=== PATIENT | male | born 1970 | race Caucasian/White ===

== ENCOUNTER 2020-09-21 00:32 | Inpatient (IN) ==
[2020-09-21] MEDS ORDERED: ONDANSETRON 4 MG/2 ML VIAL IV STA ×2 (00:54→07:24)
[2020-09-21] MEDS ORDERED: SODIUM CHLORIDE 0.9% 1,000 ML IV STA (00:54)
[2020-09-21] MEDS ORDERED: HYDROmorphone 2 MG/1 ML VIAL IV STA (00:54)
[2020-09-21] MEDS ORDERED: PANTOPRAZOLE 40 MG VIAL IV STA (00:54)
[2020-09-21] MEDS ORDERED: ALUM/MAG/SIMETH/LIDO VISC 1:1 30 ML BOTTLE PO STA (00:54)
[2020-09-21 01:10] LABS: Alanine Aminotransferase 26 U/L (16-61); Albumin 3.9 G/DL (3.4-5.0); Alkaline Phosphatase 62 U/L (45-117); Aspartate Amino Transferase 18 U/L (0-37); Blood Urea Nitrogen 12 MG/DL (7-18); Calcium 9.2 MG/DL (8.5-10.1); Carbon Dioxide 27 MMOL/L (21-32); Estimated Glom Filtration Rate 76 ML/MIN; Glucose 174 MG/DL (74-106); Potassium 3.9 MMOL/L (3.5-5.1); Sodium 136 MMOL/L (136-145); Total Protein 7.3 G/DL (6.4-8.2)
[2020-09-21 01:23] LABS: Basophils % 0.4 % (0.0-0.8); Eosinophils % 0.1 % (0.00-10.9); Hematocrit 50.2 VOL% (42.0-52.0); Hemoglobin 17.1 GM/DL (14.0-18.0); Immature Granulocytes % 0.4 %; Immature Granulocytes Absolute 0.03 #; Lymphocytes # 0.9 10*3/uL (1.4-4.0); Lymphocytes % 10.1 % (21.2-54.2); Mean Corpuscular HGB Conc 34.1 GM/DL (32-36); Mean Corpuscular Volume 85.2 FL (87-102); Mean Platelet Volume 9.6 FL (9.6-12.0); Monocytes % 3.6 % (1.7-12.7); Neutrophils % 85.4 % (38.7-73.9); Platelet Count 311 T/CUMM (130-400); Red Blood Count 5.89 MC/CUMM (3.8-5.5); Red Cell Distribution Width 13.6 % (9.3-17.3); White Blood Count 8.5 T/CUMM (4-12)
[2020-09-21 02:42] LABS: Band Neutrophils 2 % (0-10); Lymphocytes 17 % (20-55); Platelet Estimate Increased; Segmented Neutrophils 79 % (50-85); Total Cells Counted 100
[2020-09-21 02:43] LABS: Hypochromasia Slight; Microcytosis 1+; Stomatocytes Few
[2020-09-21 02:45] LABS: Tear Drop Cells Slight
[2020-09-21 03:17] LABS: Bacteria,Urine Occasional /HPF (Few); Bilirubin,Urine Negative (Negative); Blood, Urine Negative (Negative); Glucose,Urine (UA) Negative (Negative); Ketones,Urine Negative (Negative); Mucus,Urine Many /LPF (Occasional); Nitrite,Urine Positive (Negative); Protein,Urine Negative; RBC,Urine 2 /HPF (0-4); Squamous Epithelial Cell,Urine Occasional /HPF (0-10); Urine Appearance CLEAR (Clear); Urine Color Amber (Yellow); Urine Specific Gravity > 1.060 (1.001-1.035)
[2020-09-21] MEDS ORDERED: PIPERACILLIN/TAZOBACTAM 3,375 MG in SODIUM CHLORIDE 0.9% 100 ML IV STA (03:19)
[2020-09-21] MEDS ORDERED: HYDROmorphone 2 MG/1 ML VIAL IV ONE (03:30)
[2020-09-21] MEDS ORDERED: LIDOCAINE 2% 5 ML VIAL ONE (04:33)
[2020-09-21] MEDS ORDERED: ROCURONIUM 50 MG/5 ML VIAL IV ONE (04:33)
[2020-09-21] MEDS ORDERED: fentaNYL 100 MCG/2 ML VIAL ONE (04:33)
[2020-09-21] MEDS ORDERED: SUCCINYLCHOLINE 200 MG/10 ML VIAL ONE (04:33)
[2020-09-21] MEDS ORDERED: propofoL 200 MG/20 ML VIAL IV ONE ×2 (04:33→05:31)
[2020-09-21] MEDS ORDERED: MIDAZOLAM 2 MG/2 ML VIAL ONE (04:34)
[2020-09-21] MEDS ORDERED: SEVOFLURANE 1 UNIT/15 MINUTE INH ONE (05:28)
[2020-09-21] MEDS ORDERED: DEXAMETHASONE 4 MG/1 ML VIAL ONE (05:28)
[2020-09-21] MEDS ORDERED: LACTATED RINGERS 1,000 ML IV ONE (05:28)
[2020-09-21] MEDS ORDERED: ONDANSETRON 4 MG/2 ML VIAL ONE ×2 (05:28→07:20)
[2020-09-21] MEDS ORDERED: SUGAMMADEX 200 MG/2 ML VIAL IV ONE (05:29)
[2020-09-21] MEDS: HYDROmorphone 2 MG/1 ML VIAL IV PRN ×2 (07:25→07:35)
[2020-09-21] MEDS ORDERED: PROMETHAZINE 25 MG/1 ML VIAL IM PRN (08:23)
[2020-09-21] MEDS: KETOROLAC 15 MG/1 ML VIAL IV SCH ×3 (09:39→20:41)
[2020-09-21] MEDS: LACTATED RINGERS 1,000 ML IV SCH ×3 (09:41→22:12)
[2020-09-21] MEDS: metroNIDAZOLE INJ 500 MG/100 ML PREMIX IV SCH ×2 (11:21→18:03)
[2020-09-22] MEDS: KETOROLAC 15 MG/1 ML VIAL IV SCH ×4 (02:32→20:25)
[2020-09-22] MEDS: LACTATED RINGERS 1,000 ML IV SCH ×4 (02:50→21:53)
[2020-09-22 05:28] LABS: Basophils % 0.3 % (0.0-0.8); Eosinophils % 0.1 % (0.00-10.9); Hematocrit 42.8 VOL% (42.0-52.0); Immature Granulocytes % 0.9 %; Immature Granulocytes Absolute 0.08 #; Lymphocytes # 0.6 10*3/uL (1.4-4.0); Mean Corpuscular HGB Conc 33.2 GM/DL (32-36); Mean Platelet Volume 9.6 FL (9.6-12.0); Monocytes % 4.4 % (1.7-12.7); Neutrophils % 87.3 % (38.7-73.9); Red Blood Count 4.92 MC/CUMM (3.8-5.5); Red Cell Distribution Width 14.6 % (9.3-17.3); White Blood Count 8.9 T/CUMM (4-12)
[2020-09-22 05:42] LABS: Hemoglobin 14.2 GM/DL (14.0-18.0)
[2020-09-22] MEDS: PANTOPRAZOLE 40 MG VIAL IV SCH (05:42)
[2020-09-22 05:43] LABS: Platelet Count 192 T/CUMM (130-400)
[2020-09-22 05:52] LABS: Calcium 8.3 MG/DL (8.5-10.1); Osmolality,Calculated 277.7 MOS/KG (273-304); Potassium 4.2 MMOL/L (3.5-5.1)
[2020-09-22 06:05] LABS: Band Neutrophils 9 % (0-10); Eosinophils 1 % (0-10); Lymphocytes 12 % (20-55); Platelet Estimate Adequate; Segmented Neutrophils 76 % (50-85); Total Cells Counted 100
[2020-09-22] MEDS: ENOXAPARIN 40 MG/0.4 ML SYRINGE SUBCUT SCH (09:00)
[2020-09-22] MEDS: ONDANSETRON 4 MG/2 ML VIAL IV PRN (14:20)
[2020-09-23] MEDS: KETOROLAC 15 MG/1 ML VIAL IV SCH ×4 (03:34→21:31)
[2020-09-23] MEDS: LACTATED RINGERS 1,000 ML IV SCH (05:01)
[2020-09-23 05:22] LABS: Basophils % 0.3 % (0.0-0.8); Eosinophils % 0.3 % (0.00-10.9); Hematocrit 40.3 VOL% (42.0-52.0); Hemoglobin 13.2 GM/DL (14.0-18.0); Immature Granulocytes % 1.6 %; Immature Granulocytes Absolute 0.16 #; Lymphocytes # 0.7 10*3/uL (1.4-4.0); Lymphocytes % 6.5 % (21.2-54.2); Mean Corpuscular HGB Conc 32.8 GM/DL (32-36); Mean Corpuscular Volume 88.8 FL (87-102); Mean Platelet Volume 9.6 FL (9.6-12.0); Monocytes % 4.4 % (1.7-12.7); Neutrophils % 86.9 % (38.7-73.9); Platelet Count 200 T/CUMM (130-400); Red Blood Count 4.54 MC/CUMM (3.8-5.5); Red Cell Distribution Width 14.4 % (9.3-17.3); White Blood Count 10.3 T/CUMM (4-12)
[2020-09-23] MEDS: PANTOPRAZOLE 40 MG VIAL IV SCH (05:43)
[2020-09-23 05:49] LABS: Band Neutrophils 1 % (0-10); Lymphocytes 10 % (20-55); Platelet Estimate Adequate; Segmented Neutrophils 84 % (50-85); Total Cells Counted 100
[2020-09-23 05:58] LABS: Osmolality,Calculated 277.7 MOS/KG (273-304); Potassium 4.4 MMOL/L (3.5-5.1)
[2020-09-23] MEDS: ENOXAPARIN 40 MG/0.4 ML SYRINGE SUBCUT SCH (08:52)
[2020-09-23] MEDS: DEXT 5% NACL 0.45% KCL 40 MEQ 40 MEQ/1,000 ML BAG IV SCH ×2 (09:55→17:46)
[2020-09-23] MEDS: HYDROmorphone 2 MG/1 ML VIAL IV PRN (16:16)
[2020-09-24] MEDS: PANTOPRAZOLE 40 MG VIAL IV SCH ×2 (03:31→05:54)
[2020-09-24] MEDS: KETOROLAC 15 MG/1 ML VIAL IV SCH (03:32)
[2020-09-24] MEDS: DEXT 5% NACL 0.45% KCL 40 MEQ 40 MEQ/1,000 ML BAG IV SCH ×2 (03:43→16:23)
[2020-09-24 07:53] LABS: Basophils % 0.5 % (0.0-0.8); Eosinophils # 0.1 10*3/uL (0.0-0.87); Hematocrit 37.7 VOL% (42.0-52.0); Hemoglobin 12.9 GM/DL (14.0-18.0); Immature Granulocytes % 0.7 %; Immature Granulocytes Absolute 0.06 #; Lymphocytes # 0.5 10*3/uL (1.4-4.0); Mean Corpuscular HGB Conc 34.2 GM/DL (32-36); Mean Corpuscular Volume 86.3 FL (87-102); Mean Platelet Volume 9.2 FL (9.6-12.0); Monocytes % 7.1 % (1.7-12.7); Neutrophils % 84.7 % (38.7-73.9); Platelet Count 191 T/CUMM (130-400); Red Blood Count 4.37 MC/CUMM (3.8-5.5); Red Cell Distribution Width 14.7 % (9.3-17.3); White Blood Count 8.3 T/CUMM (4-12)
[2020-09-24 08:05] LABS: Calcium 8.4 MG/DL (8.5-10.1); Osmolality,Calculated 277.8 MOS/KG (273-304); Potassium 4.4 MMOL/L (3.5-5.1)
[2020-09-24 08:26] LABS: Band Neutrophils 1 % (0-10); Lymphocytes 5 % (20-55); Segmented Neutrophils 83 % (50-85); Total Cells Counted 100
[2020-09-24 08:27] LABS: Platelet Estimate Adequate
[2020-09-24] MEDS: ONDANSETRON 4 MG/2 ML VIAL IV PRN ×2 (08:45→16:25)
[2020-09-24] MEDS: HYDROmorphone 2 MG/1 ML VIAL IV PRN ×2 (08:45→16:24)
[2020-09-24] MEDS: ENOXAPARIN 40 MG/0.4 ML SYRINGE SUBCUT SCH (08:46)
[2020-09-25] MEDS: DEXT 5% NACL 0.45% KCL 40 MEQ 40 MEQ/1,000 ML BAG IV SCH ×5 (01:20→19:20)
[2020-09-25 06:13] LABS: Basophils % 0.2 % (0.0-0.8); Eosinophils # 0.1 10*3/uL (0.0-0.87); Eosinophils % 1.5 % (0.00-10.9); Hematocrit 38.1 VOL% (42.0-52.0); Hemoglobin 12.6 GM/DL (14.0-18.0); Immature Granulocytes % 0.6 %; Immature Granulocytes Absolute 0.05 #; Lymphocytes # 0.7 10*3/uL (1.4-4.0); Lymphocytes % 8.5 % (21.2-54.2); Mean Corpuscular HGB Conc 33.1 GM/DL (32-36); Mean Corpuscular Volume 87.6 FL (87-102); Mean Platelet Volume 9.6 FL (9.6-12.0); Monocytes % 10.5 % (1.7-12.7); Neutrophils % 78.7 % (38.7-73.9); Platelet Count 196 T/CUMM (130-400); Red Blood Count 4.35 MC/CUMM (3.8-5.5); White Blood Count 8.1 T/CUMM (4-12)
[2020-09-25] MEDS: PANTOPRAZOLE 40 MG VIAL IV SCH (06:29)
[2020-09-25 06:32] LABS: Calcium 8.2 MG/DL (8.5-10.1); Osmolality,Calculated 281.5 MOS/KG (273-304); Potassium 4.4 MMOL/L (3.5-5.1)
[2020-09-25] MEDS: HYDROmorphone 2 MG/1 ML VIAL IV PRN ×2 (06:38→18:10)
[2020-09-25] MEDS: ENOXAPARIN 40 MG/0.4 ML SYRINGE SUBCUT SCH (08:18)
[2020-09-26] MEDS: HYDROmorphone 2 MG/1 ML VIAL IV PRN ×4 (02:45→23:39)
[2020-09-26] MEDS: DEXT 5% NACL 0.45% KCL 40 MEQ 40 MEQ/1,000 ML BAG IV SCH ×5 (03:20→21:45)
[2020-09-26] MEDS: PANTOPRAZOLE 40 MG VIAL IV SCH (06:18)
[2020-09-26] MEDS: ENOXAPARIN 40 MG/0.4 ML SYRINGE SUBCUT SCH (08:12)
[2020-09-27] MEDS: HYDROmorphone 2 MG/1 ML VIAL IV PRN ×4 (05:31→22:20)
[2020-09-27] MEDS: PANTOPRAZOLE 40 MG VIAL IV SCH (06:29)
[2020-09-27] MEDS: DEXT 5% NACL 0.45% KCL 40 MEQ 40 MEQ/1,000 ML BAG IV SCH ×4 (09:42→23:55)
[2020-09-27] MEDS: ENOXAPARIN 40 MG/0.4 ML SYRINGE SUBCUT SCH (09:44)
[2020-09-27] MEDS: ONDANSETRON 4 MG/2 ML VIAL IV PRN (22:20)
[2020-09-28] MEDS: HYDROmorphone 2 MG/1 ML VIAL IV PRN (04:12)
[2020-09-28] MEDS: ONDANSETRON 4 MG/2 ML VIAL IV PRN (04:12)
[2020-09-28] MEDS: PANTOPRAZOLE 40 MG VIAL IV SCH (05:48)
[2020-09-28 07:34] VITALS: BP 112/72
[2020-09-28] MEDS: ENOXAPARIN 40 MG/0.4 ML SYRINGE SUBCUT SCH (08:17)
[2020-09-28] MEDS ORDERED: CEFUROXIME 500 MG TABLET PO SCH (09:00)
== END 2020-09-28 12:15 | disposition home or self-care (01) | DRG 329 ==
LOC: N.ED 00:32 → N.5E 03:25 → N.ED 04:40 → N.5E 06:30
PROVIDERS: ADMIT Surgery; ATTEND Surgery

== ENCOUNTER 2021-03-18 05:36 | Inpatient (IN) ==
[2021-03-16 12:43] LABS: Basophils # 0.1 10*3/uL (0.0-0.2); Basophils % 1.7 % (0.0-0.8); Eosinophils # 0.3 10*3/uL (0.0-0.87); Eosinophils % 4.9 % (0.00-10.9); Hematocrit 48.6 VOL% (42.0-52.0); Hemoglobin 16.3 GM/DL (14.0-18.0); Immature Granulocytes % 0.5 %; Immature Granulocytes Absolute 0.03 #; Lymphocytes # 1.8 10*3/uL (1.4-4.0); Lymphocytes % 30.1 % (21.2-54.2); Mean Corpuscular HGB Conc 33.5 GM/DL (32-36); Mean Corpuscular Volume 84.8 FL (87-102); Mean Platelet Volume 9.5 FL (9.6-12.0); Monocytes % 9.5 % (1.7-12.7); Neutrophils % 53.3 % (38.7-73.9); Platelet Count 254 T/CUMM (130-400); Red Blood Count 5.73 MC/CUMM (3.8-5.5); Red Cell Distribution Width 13.6 % (9.3-17.3); White Blood Count 5.9 T/CUMM (4-12)
[2021-03-16 13:02] LABS: Calcium 9.4 MG/DL (8.5-10.1); Osmolality,Calculated 277.4 MOS/KG (273-304); Potassium 4.5 MMOL/L (3.5-5.1)
[2021-03-18] MEDS ORDERED: FAMOTIDINE 20 MG TABLET PO ONE (06:00)
[2021-03-18] MEDS ORDERED: GABAPENTIN 400 MG CAPSULE PO ONE (06:00)
[2021-03-18] MEDS ORDERED: ACETAMINOPHEN 500 MG TABLET PO ONE (06:00)
[2021-03-18] MEDS ORDERED: TISSUE ADHESIVE 1 EACH APPLICATOR TOP ONE (06:25)
[2021-03-18] MEDS ORDERED: INDOCYANINE GREEN 25 MG VIAL IV ONE ×2 (06:25→08:45)
[2021-03-18] MEDS ORDERED: LIDOCAINE 1%/EPI INJ 20 ML VIAL ONE (06:25)
[2021-03-18] MEDS ORDERED: ROPIVACAINE 0.5% 30 ML VIAL ONE (06:51)
[2021-03-18] MEDS ORDERED: LIDOCAINE 1% 5 ML VIAL ONE (06:51)
[2021-03-18] MEDS ORDERED: MIDAZOLAM 2 MG/2 ML VIAL ONE (06:51)
[2021-03-18] MEDS ORDERED: fentaNYL 100 MCG/2 ML VIAL ONE ×2 (06:51→08:13)
[2021-03-18] MEDS ORDERED: LACTATED RINGERS 1,000 ML IV SCH (07:30)
[2021-03-18] MEDS ORDERED: ePHEDrine 50 MG/ML VIAL ONE (08:35)
[2021-03-18] MEDS ORDERED: propofoL 200 MG/20 ML VIAL IV ONE (08:39)
[2021-03-18] MEDS ORDERED: LIDOCAINE 2% 5 ML VIAL ONE (08:39)
[2021-03-18] MEDS ORDERED: ROCURONIUM 50 MG/5 ML VIAL IV ONE (08:39)
[2021-03-18] MEDS ORDERED: ONDANSETRON 4 MG/2 ML VIAL ONE (08:40)
[2021-03-18] MEDS ORDERED: SEVOFLURANE 1 UNIT/15 MINUTE INH ONE ×2 (08:40→11:18)
[2021-03-18] MEDS ORDERED: DEXAMETHASONE 4 MG/1 ML VIAL ONE (08:40)
[2021-03-18] MEDS ORDERED: GLYCOPYRROLATE 0.4 MG/2 ML VIAL ONE (10:39)
[2021-03-18] MEDS ORDERED: NEOSTIGMINE 10 MG/10 ML VIAL ONE (10:39)
[2021-03-18] MEDS ORDERED: ONDANSETRON 4 MG/2 ML VIAL IV PRN (12:22)
[2021-03-18] MEDS ORDERED: HYDROmorphone 2 MG/1 ML VIAL IV PRN (12:22)
[2021-03-18 12:57] LABS: Basophils # 0.1 10*3/uL (0.0-0.2); Basophils % 0.5 % (0.0-0.8); Eosinophils % 0.2 % (0.00-10.9); Hematocrit 46.6 VOL% (42.0-52.0); Hemoglobin 15.8 GM/DL (14.0-18.0); Immature Granulocytes % 0.6 %; Immature Granulocytes Absolute 0.08 #; Lymphocytes # 0.7 10*3/uL (1.4-4.0); Lymphocytes % 5.8 % (21.2-54.2); Mean Corpuscular HGB Conc 33.9 GM/DL (32-36); Mean Platelet Volume 9.1 FL (9.6-12.0); Monocytes % 1.4 % (1.7-12.7); Neutrophils % 91.5 % (38.7-73.9); Platelet Count 201 T/CUMM (130-400); Red Blood Count 5.55 MC/CUMM (3.8-5.5); Red Cell Distribution Width 13.5 % (9.3-17.3); White Blood Count 12.5 T/CUMM (4-12)
[2021-03-18 13:15] LABS: Lymphocytes 5 % (20-55); Segmented Neutrophils 92 % (50-85); Total Cells Counted 100
[2021-03-18 13:16] LABS: Hypochromasia Slight; Platelet Estimate Normal
[2021-03-18 13:20] LABS: Calcium 8.6 MG/DL (8.5-10.1); Osmolality,Calculated 276.7 MOS/KG (273-304); Potassium 3.7 MMOL/L (3.5-5.1)
[2021-03-18] MEDS: KETOROLAC 30 MG/1 ML VIAL IV SCH ×2 (16:18→21:50)
[2021-03-18] MEDS: LACTATED RINGERS 1,000 ML IV SCH (17:48)
[2021-03-18] MEDS: ALVIMOPAN 12 MG CAPSULE PO SCH (21:52)
[2021-03-19] MEDS: LACTATED RINGERS 1,000 ML IV SCH (03:17)
[2021-03-19 05:23] LABS: Basophils % 0.2 % (0.0-0.8); Hematocrit 43.7 VOL% (42.0-52.0); Hemoglobin 14.7 GM/DL (14.0-18.0); Immature Granulocytes % 0.5 %; Immature Granulocytes Absolute 0.08 #; Lymphocytes # 1.4 10*3/uL (1.4-4.0); Lymphocytes % 9.8 % (21.2-54.2); Mean Corpuscular HGB Conc 33.6 GM/DL (32-36); Mean Platelet Volume 9.6 FL (9.6-12.0); Monocytes % 7.3 % (1.7-12.7); Neutrophils % 82.2 % (38.7-73.9); Platelet Count 235 T/CUMM (130-400); Red Blood Count 5.08 MC/CUMM (3.8-5.5); Red Cell Distribution Width 13.7 % (9.3-17.3); White Blood Count 14.6 T/CUMM (4-12)
[2021-03-19] MEDS: KETOROLAC 30 MG/1 ML VIAL IV SCH ×2 (05:47→09:07)
[2021-03-19 05:53] LABS: Calcium 8.4 MG/DL (8.5-10.1); Osmolality,Calculated 275.8 MOS/KG (273-304); Potassium 4.7 MMOL/L (3.5-5.1)
[2021-03-19] MEDS ORDERED: ENOXAPARIN 40 MG/0.4 ML SYRINGE SUBCUT SCH (06:00)
[2021-03-19] MEDS: ALVIMOPAN 12 MG CAPSULE PO SCH (09:07)
[2021-03-19 12:09] VITALS: BP 121/81
== END 2021-03-19 14:02 | disposition home or self-care (01) | DRG 331 ==
LOC: N.OR 05:36 → N.SDSINP 05:38 → N.3E 12:22
PROVIDERS: ADMIT Surgery; ATTEND Surgery